=== PATIENT | female | born 1960 | race Caucasian/White ===

== ENCOUNTER → 2019-09-12 | Outpatient (CLI) | payer OTHER ==
[~2019-09-12] MED LIST: CARI350 PO; CIPR500 PO; DESV50 PO; ESTR2 PO; FLUO20 PO; GEMF600 PO; HYDACE5 PO; Hair, Skin & N1 EACH PO; MULVITMINF PO; OLAN10 PO; OLAN10A MM; OLAN5 PO; OMEP40CA12 PO; OXYACE5T PO; OXYACE7.5T PO; OXYC10TA19 PO; PROM25 PO; TRAM50 PO
[2019-09-13 09:36] LABS: Candida species (DNA Probe) Negative (NEGATIVE); G. vaginalis (DNA Probe) Positive (NEGATIVE); T. vaginalis (DNA Probe) Negative (NEGATIVE)
== END | disposition home or self-care (01) ==
LOC: LAB SHORT 12:00 → LAB 12:00
PROVIDERS: Internal Medicine
DX: N89.8 Other specified noninflammatory disorders of vagina (principal)
CPT/HCPCS: 87480; 87510; 87660

== ENCOUNTER → 2019-09-27 | Outpatient (CLI) | payer OTHER ==
[2019-09-29 12:07] LABS: CHLAMYDIA TRACHOMATIS, NAA Negative (Negative); NEISSERIA GONORRHOEAE, NAA Negative (Negative)
== END | disposition home or self-care (01) ==
LOC: LAB SHORT 10:54 → LAB 10:54
PROVIDERS: Internal Medicine
DX: Z11.59 Encounter for screening for other viral diseases (principal)
CPT/HCPCS: 87491; 87591

== ENCOUNTER 2019-11-04 05:51 | Day surgery (SDC) | payer OTHER ==
[~2019-11-04] VITALS: Ht 325.1 cm; Wt 72.4 kg
[~2019-11-04 05:51] MED LIST changes: +ALBU2.5V5 NEB; +ALBU90OI INH; +CENTRUM SILVER1 EAC2 PO; +ESTRADIOL0.5 MG PO; +MELO7.5 PO; +OLANZAPINE15 MG PO; +SUMA25 PO; +Voltaren100 GM TOP
--- NOTE | 2019-11-04 06:57 | NUR ---
Ambulatory in Day Surgery History, Chart, Medications and Allergies reviewed before start of procedure.Patient confirms NPO status and agrees with scheduled surgery. Patient reports completing Chlorhexadine shower X2 prior to admission to hospital.Surgical site prepped with 2% Chlorhexidine cloth wipe. Lungs clear T/O to Auscultation.PT REPORTS COMPLETING 5 DAYS OF SHOWER AND MUPIROCIN OINTMENT. TOP PARTIAL DENTURE WILL BE REMOVED AND TAKEN TO PACU
--- NOTE | 2019-11-04 18:56 | NUR ---
SHIFT SUMMARY PT A&OX4, VSS, S/P R SANTA, AQUACEL CDI, POLAR ROSHNI/TEDS/SCDS ON. PAIN MANAGED WITH 5 MG OXY/TYLENOL/TORADOL. KARSTEN PO REG DIET; DENIES N&V. AMB SBA W/FWW & GB TO BRP/BED/CHAIR. VOIDING WELL. REPORT GIVEN TO NATIVIDAD HIGUERA.
--- NOTE | 2019-11-05 00:39 | NUR ---
ASKED PATEINT MULTIPLE TIMES IF SHE WANTED TO TAKE GAIT BELT OFF WHILE IN BED. PATIENT REFUSED. RN NOTIFIED. NO OTHER NEEDS AT THIS TIME. CALL LIGHT IN REACH.
[2019-11-05 04:47] LABS: BASOPHILS ABSOLUTE AUTO 0.02 K/mm3 (0.00-0.23); BASOPHILS PERCENT AUTO 0 % (0-2); EOSINOPHILS ABSOLUTE AUTO 0.04 K/mm3 (0.00-0.68); EOSINOPHILS PERCENT AUTO 1 % (0-6); Hematocrit 31.6 % (33.0-51.0); Hemoglobin 10.2 g/dL (11.5-16.0); IMMATURE GRAN ABSOLUTE AUTO 0.03 K/mm3 (0.00-0.10); IMMATURE GRAN PERCENT AUTO 0 % (0-1); LYMPHOCYTES ABSOLUTE AUTO 1.74 K/mm3 (0.84-5.20); LYMPHOCYTES PERCENT AUTO 26 % (21-46); MONOCYTES ABSOLUTE AUTO 0.57 K/mm3 (0.16-1.47); MONOCYTES PERCENT AUTO 8 % (4-13); Mean Corpuscular HGB 29.8 pg (26.0-34.0); Mean Corpuscular HGB Conc 32.3 g/dL (31.5-36.5); Mean Corpuscular Volume 92 fL (80-100); Mean Platelet Volume 11.1 fL (9.1-12.4); NEUTROPHILS ABSOLUTE AUTO 4.39 K/mm3 (1.96-9.15); NEUTROPHILS PERCENT AUTO 65 % (41-73); Platelet Count 136 K/mm3 (150-400); RDW Coefficient Variation 11.8 % (11.7-14.2); RDW Standard Deviation 39.9 fL (35.1-46.3); Red Blood Cell Count 3.42 M/mm3 (3.80-5.20); White Blood Cell Count 6.79 K/mm3 (4.00-11.30)
--- NOTE | 2019-11-05 05:05 | NUR ---
SHIFT SUMMARY: PT POD#1 FOR RIGHT TOTAL HIP. AQUACEL DRESSING CDI WITH POLAR PACK IN PLACE. PAIN MANAGED WITH TORADOL, TYLENOL AND 5MG OXY PER EMAR. PT AMBULATING TO BATHROOM WITH ONE MINIMAL ASSIST AND FWW. VOIDING WELL. KARSTEN PO. DENIES N/V. VS WNL.
[2019-11-05 05:09] LABS: Anion Gap 4 mmol/L (6-16); Blood Urea Nitrogen 8 mg/dL (8-24); Bun/Creatinine Ratio 11.4 (12.0-20.0); CO2, Blood 29 mmol/L (21-32); Chloride, Blood 111 mmol/L (98-108); Glomerular Filtration Rate >60 (60-); Glucose, Blood 97 mg/dL (70-99); Magnesium, Blood 2.3 mg/dL (1.6-2.4); Potassium, Blood 3.8 mmol/L (3.5-5.5); Sodium, Blood 144 mmol/L (136-145)
[2019-11-05] MEDS ORDERED: OXYC5 PO (12:16)
[2019-11-05] MEDS ORDERED: ACET500 PO (12:16)
[2019-11-05] MEDS ORDERED: ASPI81CH PO (12:17)
--- NOTE | 2019-11-05 14:36 | NUR ---
DISCHARGE: PT EATING AND DRINKING, VOIDING, PASSING GAS. PT REPORTS HAVING WALKER AT HOME. PT REPORTS CALLING FRIEND TO HELP WITH PAIN SCRIPT. PT CLEARED THERAPY TO GO HOME. PT REPORTS UNDERSTANDING OF DISCHARGE INSTRUCTIONS INCLUDING DRESSING CHANGE, POLAR PAC. PT SENT WITH SCRIPT AND OTHER BELONGINGS WELL POLAR PAC AND DRESSING SUPPLIES.
== END 2019-11-05 14:41 | disposition home or self-care (01) ==
LOC: ORSCMMR 05:51 → ORD 07:30 → SURS 12:00 → ORSCMMR 11-05 14:41 → SURS 11-05 14:41
PROVIDERS: Orthopaedic Surgery
PROC: 0SR90JA Replacement of Right Hip Joint with Synthetic Substitute, Uncemented, Open Approach (ICD-10-PCS; principal; 2019-11-04 07:30)
DX: M16.11 Unilateral primary osteoarthritis, right hip (principal); G47.33 Obstructive sleep apnea (adult) (pediatric); J44.9 Chronic obstructive pulmonary disease, unspecified; Z87.891 Personal history of nicotine dependence; F20.9 Schizophrenia, unspecified; Z79.899 Other long term (current) drug therapy
CPT/HCPCS: 36415; 72170; 80048; 83735; 85025; 88300; 97110; 97116; 97162; 97530; A9270-GY; C1713; C1776; J0171; J0690; J0735; J1100; J1885; J2250; J2405; J2704; J2795; J3010; J7120

== ENCOUNTER → 2020-04-13 | Outpatient (CLI) | payer OTHER ==
[~2020-04-13] MED LIST changes: +ACET500 PO; +ASPI81CH PO; +BENZOTROPINE PO; +OXYC5 PO; +ROXICODONE5 MG PO; +[UNRECOGNIZED DRUG - OTHER] PO
== END | disposition home or self-care (01) ==
LOC: LAB 16:00
DX: Z01.419 Encounter for gynecological examination (general) (routine) without abnormal findings (principal)
CPT/HCPCS: 87070; 87205

== ENCOUNTER 2020-10-12 07:51 | Day surgery (SDC) | payer OTHER ==
[~2020-10-12] VITALS: Ht 172.7 cm; Wt 75.2 kg
[~2020-10-12 07:51] MED LIST changes: -ROXICODONE5 MG PO
[2020-10-12] MEDS ORDERED: TRAM50 PO (08:23)
--- NOTE | 2020-10-12 08:47 | NUR ---
Ambulatory in Day Surgery Patient confirms NPO status and agrees with scheduled surgery. Patient reports completing Chlorhexadine shower X2 prior to admission to hospital. Lungs clear T/O to Auscultation. History, Chart, Medications and Allergies reviewed before start of procedure. PT REPORTS MUPIROCIN OINT TO BIALTERAL NARES AND SHOWERS PER ORDERS COMPLETED. + VOID.
--- NOTE | 2020-10-12 16:01 | NUR ---
POST OP: REPORT RECEIVED FROM ATLASSIAN ADMINISTRATORLARISSA. PT TO UNIT AT ABOUT 1200. UPON ASSESSMENT PT IS DROWSY, ORIENTED. VSS. PT DENIES PAIN, REPORTS NUMBNESS FROM ABOUT THE HIP DOWN, UNABLE TO WIGGLE TOES. SURGICAL SITE WNL, POLAR PAC IN PLACE. WILL CTM.
--- NOTE | 2020-10-12 18:35 | NUR ---
SUMMARY: PT IS POD0 L TKA. VSS, A/O. PT DOING WELL, HAS DENIED PAIN. ABLE TO AMBULATE IN CAN WITH THERAPY AND TO THE BATHROOM. SURGICAL SITE WNL. KNEE ELEVATED IN RECLINER AND ICED WHEN PT RESTING. PT KARSTEN PO AND IS VOIDING. NO SAFETY CONCERNS.
--- NOTE | 2020-10-13 02:33 | NUR ---
SHIFT SUMMARY: POD 1 LEFT TKA PATIENT IS ALERT AND ORIENTED X4 WHILE AWAKE. THOUGH SHE HAS BEEN ASLEEP MAJORITY OF THE SHIFT BUT IS EASILY AWAKENED. PATIENT DOES SEEM TO HAVE A FLAT AFFECT WHEN SPEAKING TO HER. VS ARE WNL AND IS ON RA. PAIN IS MANAGED WITH TYLENOL AND TORADOL. THE TWO AQUACELS ARE C/D/I ON HER KNEE. PATIENT DENIES NUMBNESS AND TINGLING. SHE IS TOLERATING PO INTAKE AND IS VOIDING. CALLS APPROPRIATELY. SHE IS A SBA WITH FWW AND GAIT BELT. CALL LIGHT WITHIN REACH. THE PLAN IS TO BE DISCHARGED TO HOME LATER TODAY.
[2020-10-13 04:31] LABS: BASOPHILS ABSOLUTE AUTO 0.02 K/mm3 (0.00-0.23); BASOPHILS PERCENT AUTO 0 % (0-2); EOSINOPHILS ABSOLUTE AUTO 0.07 K/mm3 (0.00-0.68); EOSINOPHILS PERCENT AUTO 1 % (0-6); Hematocrit 34.2 % (33.0-51.0); Hemoglobin 11.3 g/dL (11.5-16.0); IMMATURE GRAN ABSOLUTE AUTO 0.01 K/mm3 (0.00-0.10); IMMATURE GRAN PERCENT AUTO 0 % (0-1); LYMPHOCYTES ABSOLUTE AUTO 1.86 K/mm3 (0.84-5.20); LYMPHOCYTES PERCENT AUTO 34 % (21-46); MONOCYTES ABSOLUTE AUTO 0.45 K/mm3 (0.16-1.47); MONOCYTES PERCENT AUTO 8 % (4-13); Mean Corpuscular HGB 29.4 pg (26.0-34.0); Mean Corpuscular Volume 89 fL (80-100); Mean Platelet Volume 11.5 fL (9.1-12.4); NEUTROPHILS ABSOLUTE AUTO 3.11 K/mm3 (1.96-9.15); NEUTROPHILS PERCENT AUTO 56 % (41-73); Platelet Count 133 K/mm3 (150-400); RDW Coefficient Variation 13.8 % (11.7-14.2); RDW Standard Deviation 45.1 fL (35.1-46.3); Red Blood Cell Count 3.84 M/mm3 (3.80-5.20); White Blood Cell Count 5.52 K/mm3 (4.00-11.30)
[2020-10-13 04:57] LABS: Anion Gap 4 mmol/L (6-16); Blood Urea Nitrogen 14 mg/dL (8-24); CO2, Blood 26 mmol/L (21-32); Calcium, Blood 7.8 mg/dL (8.5-10.1); Chloride, Blood 112 mmol/L (98-108); Creatinine, Blood 0.82 mg/dL (0.40-1.00); Glomerular Filtration Rate >60 (60-); Glucose, Blood 88 mg/dL (70-99); Magnesium, Blood 2.4 mg/dL (1.6-2.4); Potassium, Blood 3.8 mmol/L (3.5-5.5); Sodium, Blood 142 mmol/L (136-145)
[2020-10-13] MEDS ORDERED: OXYC5 PO (08:47)
[2020-10-13] MEDS ORDERED: ROXICODONE5 MG PO (09:50)
[2020-10-13] MEDS ORDERED: ACET500 PO (09:51)
[2020-10-13] MEDS ORDERED: ASPI81CH PO (09:52)
--- NOTE | 2020-10-13 12:32 | NUR ---
DISCHARGE: PT CLEARED WITH THERAPY. DISCHARGE PACKET PRINTED AND PT EDUCATED. PT GIVEN EXTRA AQUCEL DRESSINGS AND SCRIPT. NO MEDS FAXED TO PHARMACY. IV DC'D WNL. PT LEFT UNIT VIA WHEELCHAIR WITH THIS RN AT ABOUT 1055
== END 2020-10-13 11:05 | disposition home or self-care (01) ==
LOC: ORSCMMR 07:51 → ORD 10:45 → ORSCMMR 11:48 → SURS 11:48 → ORSCMMR 10-13 11:05 → SURS 10-13 11:05 → ORD 10-19 14:00
PROVIDERS: Orthopaedic Surgery
PROC: 0SRD0JA Replacement of Left Knee Joint with Synthetic Substitute, Uncemented, Open Approach (ICD-10-PCS; principal; 2020-10-12 10:45)
PROC: 8E0Y0CZ Robotic Assisted Procedure of Lower Extremity, Open Approach (ICD-10-PCS; principal; 2020-10-12 10:45)
DX: M17.12 Unilateral primary osteoarthritis, left knee (principal); E78.5 Hyperlipidemia, unspecified; J44.9 Chronic obstructive pulmonary disease, unspecified; Z87.891 Personal history of nicotine dependence; G47.33 Obstructive sleep apnea (adult) (pediatric); K21.9 Gastro-esophageal reflux disease without esophagitis; E11.9 Type 2 diabetes mellitus without complications; F20.9 Schizophrenia, unspecified; Z79.899 Other long term (current) drug therapy; Z86.19 Personal history of other infectious and parasitic diseases
CPT/HCPCS: 27447; S2900; 36415; 73560-LT; 80048; 83735; 85025; 94760; 97110; 97116; 97161; 97530; A9270; C1776; J0171; J0690; J0735; J1100; J1885; J2250; J2370; J2405; J2704; J2795; J3010; J7120

== ENCOUNTER → 2021-01-26 | Outpatient (CLI) | payer OTHER ==
[~2021-01-26] MED LIST changes: +ROXICODONE5 MG PO
[2021-01-26 12:59] LABS: Body Fluid Crystals NEG (NEGATIVE)
[2021-01-26 13:28] LABS: BODY FLUID RBC 0.467 M/mm3 (0-0); RBC Count, Synovial Fluid 467000 /mm3 (0-0); WBC Count, Synovial Fluid 493 /mm3 (0-180)
[2021-01-26 14:12] LABS: Eos, Synovial Fluid 1 % (0-2); Lymphs, Synovial Fluid 31 % (0-15); Monocytes/Macrophages, Synovia 2 % (0-65); Neutrophils, Synovial Fluid 66 % (0-24)
[2021-01-26 14:13] LABS: Appearance, Synovial Fluid Bloody (Clear); Color, Synovial Fluid Red (None-P Yel)
== END | disposition home or self-care (01) ==
LOC: LAB 12:37 → LAB SHORT 12:37
PROVIDERS: Orthopaedic Surgery
DX: M25.462 Effusion, left knee (principal)
CPT/HCPCS: 86140; 89051; 89060

== ENCOUNTER 2021-02-05 06:03 | Day surgery (SDC) | payer OTHER ==
[~2021-02-05] VITALS: Ht 172.7 cm; Wt 72.1 kg
[2021-02-05] MEDS ORDERED: TRAM50 PO (07:06)
[2021-02-05 07:07] LABS: SARS-Cov-2 (COVID-19) PCR, MMC NEGATIVE (NEGATIVE)
--- NOTE | 2021-02-05 07:09 | NUR ---
History, Chart, Medications and Allergies reviewed before start of procedure. Patient confirms NPO status and agrees with scheduled surgery. Patient States Post-Procedure ride home has been arranged with medical transport.
--- NOTE | 2021-02-05 07:24 | NUR ---
NOZIN NASAL SANIZTIZER X3 AMPULES USED TO CLEAN NARES BILAT PER ORDER. KNEE HIGH SHAHBAZ HOSE AND CALF PAS APPLIED TO RLE.
[2021-02-05] MEDS ORDERED: OXYC5 PO (10:49)
[2021-02-05 11:37] LABS: Creatinine, Blood 0.78 mg/dL (0.40-1.00)
[2021-02-05] MEDS ORDERED: ACET500 PO (12:25)
--- NOTE | 2021-02-05 17:40 | NUR ---
pt instructed on emptying and recording mildred drain. pt with knee immobilizer in place to left knee, dressing dry and intact, pt denies numbness or tingling of extrenities. pt reprts pain 8/10 to left knee
--- NOTE | 2021-02-06 04:48 | NUR ---
SHIFT SUMMARY POD1 FROM INSCISION, I&D WITH MOSHE DRAIN ON L KNEE. L KNEE WITH MARVA WRAPPED AND KNEE IMMOBILIZER. PT REPORTS MODERATE PAIN BUT DENIES NUMBNESS AND TINGLING SENSATION. PAIN MANAGED WITH TYLENOL AND OXYCODONE. PT TOLEARTING PO INTAKE, DIDN'T EAT HER DINNER BUT HAD SOME SNACKS THIS MORNING. PT DENIES NAUSEA AND VOMITING. PT SLEPT GOOD OVERNIGHT. VOIDING. SALINE LOCKED. IV ABX ADMINSTERED. AOX4. USED BSC WITH 1 PERSON ASSIST. PLAN FOR DISCHARGE TODAY AT HOME. CALL LIGHT WITHIN REACH. WILL PROVIDE REPORT TO ONCOMING NURSE.
--- NOTE | 2021-02-06 11:10 | NUR ---
CALL PLACED TO DR. HENSON REGARDING INCREASED PAIN. TORADOL PRESCRIBED. ALSO DISCUSSED WITH HIM ABX, DR. HENSON REPORTED OK TO DC PT HOME WITHOUT ABX AND TO LEAVE MOSHE DRAIN IN PLACE PER DR. BLANDON ORDERS. PT WILL REQUIRE PHYSICAL THERAPY PRIOR TO DISCHARGE.
--- NOTE | 2021-02-06 17:27 | NUR ---
SHIFT SUMMARY PT IS POD#1 FROM I&D OF LEFT KNEE. PAIN MANAGED WITH TYLENOL, TORADOL, AND OXY. PT CLEARED THERAPY TODAY. PLAN FOR DISCHARGE HOME WHEN [facility] TRANSPORT IS AVALIABLE, TRANSPORT AVALIABLE AT 2030. VSS. WILL MONITOR UNTIL REPORT TO NOC RN.
--- NOTE | 2021-02-06 18:43 | NUR ---
MOSHE DRAIN BECAME DISCONNECTED MOSHE DRAIN BULB BECAME DISCONNECTED AND FELL ONTO THE FLOOR. OLD DRAIN WAS DISCARDED. TUBING WAS COVERED WITH AN ALCOHOL WIPE AND CLAMPED UNTIL NEW DRAIN COULD BE OBTAINED AND CONNECTED. BULB DRAIN HOLDING SUCTION AFTER BEING RECONNECTED. DR. HENSON WAS NOTIFIED OF DISCONNECTION AND HE ORDERED BACTRIM DS FOR HOME USE, MEDICATION WAS CALLED TO PT'S PHARMACY. PT EDUCATED TO START BACTRIM TOMORROW MORNING PER DR. HENSON AND WILL HAVE HER LAST DOSE OF VANCO BEFORE DISCHARGE TONIGHTDR. HENSON AWARE.
[2021-02-06 19:39] LABS: Vancomycin, Trough 11.4 ug/mL (5.0-10.0)
--- NOTE | 2021-02-06 21:30 | NUR ---
SUMMARY PT WITH DSNGS D/I.[facility] CHECKS INTACT. ABLE TO DRESS SELF FOR DISCHARGE. VANCO TROUGH COMPLETED AND VANCO INFUSED.PT VERB UNDERSTANDING TO START PO ANTIBIOTICS IN AM.IV WAS DCD WITH CATH INTACT.PT WAS DRIVEN HOME PER TRANSPORT ORDERED PER DAY RN.
== END 2021-02-06 21:22 | disposition home or self-care (01) ==
LOC: ORSCMMR 06:03 → ORD 09:30 → ORSCMMR 09:30 → SURS 10:29 → ORSCMMR 02-06 21:22
PROVIDERS: Orthopaedic Surgery
PROC: 0SRD0LZ Replacement of Left Knee Joint with Medial Unicondylar Synthetic Substitute, Open Approach (ICD-10-PCS; principal; 2021-02-05 07:30)
PROC: 0SBD0ZZ Excision of Left Knee Joint, Open Approach (ICD-10-PCS; principal; 2021-02-05 07:30)
PROC: 0SPD0LZ Removal of Medial Unicondylar Synthetic Substitute from Left Knee Joint, Open Approach (ICD-10-PCS; principal; 2021-02-05 07:30)
DX: M25.462 Effusion, left knee (principal); T84.54XA Infection and inflammatory reaction due to internal left knee prosthesis, initial encounter; E78.5 Hyperlipidemia, unspecified; J44.9 Chronic obstructive pulmonary disease, unspecified; Z87.891 Personal history of nicotine dependence; G47.33 Obstructive sleep apnea (adult) (pediatric); B19.20 Unspecified viral hepatitis C without hepatic coma; F20.9 Schizophrenia, unspecified; F32.A Depression, unspecified; Z79.899 Other long term (current) drug therapy
CPT/HCPCS: 36415; 80202; 82565; 85651; 86140; 97161; A9270; C1713; C1776; J0690; J1100; J1170; J1885; J2250; J2405; J2704; J3010; J3370; J7050; J7120; U0004

== ENCOUNTER → 2021-04-06 | Outpatient (CLI) | payer OTHER ==
[2021-04-06 16:43] LABS: BASOPHILS ABSOLUTE AUTO 0.04 K/mm3 (0.00-0.23); BASOPHILS PERCENT AUTO 1 % (0-2); EOSINOPHILS ABSOLUTE AUTO 0.08 K/mm3 (0.00-0.68); EOSINOPHILS PERCENT AUTO 1 % (0-6); Hematocrit 35.3 % (33.0-51.0); Hemoglobin 11.3 g/dL (11.5-16.0); IMMATURE GRAN ABSOLUTE AUTO 0.01 K/mm3 (0.00-0.10); IMMATURE GRAN PERCENT AUTO 0 % (0-1); LYMPHOCYTES ABSOLUTE AUTO 1.93 K/mm3 (0.84-5.20); LYMPHOCYTES PERCENT AUTO 33 % (21-46); MONOCYTES ABSOLUTE AUTO 0.44 K/mm3 (0.16-1.47); MONOCYTES PERCENT AUTO 7 % (4-13); Mean Corpuscular HGB 27.8 pg (26.0-34.0); Mean Corpuscular Volume 87 fL (80-100); Mean Platelet Volume 11.4 fL (9.1-12.4); NEUTROPHILS ABSOLUTE AUTO 3.41 K/mm3 (1.96-9.15); NEUTROPHILS PERCENT AUTO 58 % (41-73); Platelet Count 253 K/mm3 (150-400); RDW Coefficient Variation 12.6 % (11.7-14.2); RDW Standard Deviation 40.2 fL (35.1-46.3); Red Blood Cell Count 4.07 M/mm3 (3.80-5.20); White Blood Cell Count 5.91 K/mm3 (4.00-11.30)
[2021-04-06 16:47] LABS: Alanine Aminotransfer (ALT/SGP 19 U/L (12-78); Albumin, Blood 3.1 g/dL (3.4-5.0); Albumin/Globulin Ratio 0.8 (0.8-1.8); Alk Phos 84 U/L (50-136); Anion Gap 3 mmol/L (6-16); Aspartate Aminotrans (AST/SGOT 12 U/L (12-37); Bilirubin, Total 0.3 mg/dL (0.1-1.0); Blood Urea Nitrogen 12 mg/dL (8-24); Bun/Creatinine Ratio 15.3 (12.0-20.0); CHOL/HDL RATIO 3.6; CO2, Blood 28 mmol/L (21-32); Chloride, Blood 106 mmol/L (98-108); Cholesterol 151 mg/dL (50-200); Creatinine, Blood 0.79 mg/dL (0.40-1.00); Globulin, Blood 3.9 g/dL (2.2-4.0); Glomerular Filtration Rate >60 (60-); Glucose, Blood 94 mg/dL (70-99); HDL Cholesterol 42 mg/dL (>39); LDL/HDL RATIO 2.3; Low Density Lipoprotein Chol 97 mg/dL (0-110); Potassium, Blood 4.5 mmol/L (3.5-5.5); Sodium, Blood 137 mmol/L (136-145); Triglycerides 59 mg/dL (30-160); Very Low Density Lipoprot Chol 11 mg/dL (6-32)
== END ==
LOC: LAB SHORT 15:23 → LAB 15:23
PROVIDERS: Internal Medicine
DX: D69.6 Thrombocytopenia, unspecified (principal); E78.5 Hyperlipidemia, unspecified
CPT/HCPCS: 80053; 80061; 85025

== ENCOUNTER → 2021-06-15 | Outpatient (CLI) | payer OTHER ==
[2021-06-15 15:32] LABS: BODY FLUID RBC 0.004 M/mm3 (0-0); RBC Count, Synovial Fluid 4000 /mm3 (0-0)
[2021-06-15 16:52] LABS: WBC Count, Synovial Fluid 28085 /mm3 (0-180)
[2021-06-15 16:58] LABS: Body Fluid Crystals NEG (NEGATIVE)
[2021-06-15 17:10] LABS: Lymphs, Synovial Fluid 2 % (0-15); Monocytes/Macrophages, Synovia 6 % (0-65); Neutrophils, Synovial Fluid 92 % (0-24)
[2021-06-15 17:11] LABS: Appearance, Synovial Fluid Turbid (Clear); Color, Synovial Fluid Yellow (None-P Yel)
== END ==
LOC: LAB SHORT 14:25
PROVIDERS: Orthopaedic Surgery
DX: M25.462 Effusion, left knee (principal); Z96.652 Presence of left artificial knee joint
CPT/HCPCS: 89051; 89060

== ENCOUNTER → 2021-10-05 | Outpatient (CLI) | payer OTHER ==
[2021-10-05 13:50] LABS: BASOPHILS ABSOLUTE AUTO 0.05 K/mm3 (0.00-0.23); BASOPHILS PERCENT AUTO 1 % (0-2); EOSINOPHILS ABSOLUTE AUTO 0.05 K/mm3 (0.00-0.68); EOSINOPHILS PERCENT AUTO 1 % (0-6); Hematocrit 40.9 % (33.0-51.0); Hemoglobin 12.5 g/dL (11.5-16.0); IMMATURE GRAN ABSOLUTE AUTO 0.01 K/mm3 (0.00-0.10); IMMATURE GRAN PERCENT AUTO 0 % (0-1); LYMPHOCYTES ABSOLUTE AUTO 1.28 K/mm3 (0.84-5.20); LYMPHOCYTES PERCENT AUTO 28 % (21-46); MONOCYTES ABSOLUTE AUTO 0.36 K/mm3 (0.16-1.47); MONOCYTES PERCENT AUTO 8 % (4-13); Mean Corpuscular HGB 24.4 pg (26.0-34.0); Mean Corpuscular HGB Conc 30.6 g/dL (31.5-36.5); Mean Corpuscular Volume 80 fL (80-100); Mean Platelet Volume 10.7 fL (9.1-12.4); NEUTROPHILS ABSOLUTE AUTO 2.91 K/mm3 (1.96-9.15); NEUTROPHILS PERCENT AUTO 62 % (41-73); Platelet Count 318 K/mm3 (150-400); RDW Coefficient Variation 15.9 % (11.7-14.2); RDW Standard Deviation 45.9 fL (35.1-46.3); Red Blood Cell Count 5.13 M/mm3 (3.80-5.20); White Blood Cell Count 4.66 K/mm3 (4.00-11.30)
== END ==
LOC: LAB SHORT 12:37
PROVIDERS: Internal Medicine
DX: D69.6 Thrombocytopenia, unspecified (principal)
CPT/HCPCS: 85025

== ENCOUNTER 2022-05-31 07:36 | Day surgery (SDC) | payer OTHER ==
[~2022-05-31] VITALS: Ht 172.7 cm; Wt 70.1 kg
[2022-05-31] MEDS ORDERED: TRAM50 (08:34)
[2022-05-31] MEDS ORDERED: ELIQUIS2.5 MG (08:34)
== END 2022-05-31 10:03 | disposition home or self-care (01) ==
LOC: ORSCSDS 07:36
PROVIDERS: Surgery
PROC: 0DJD8ZZ Inspection of Lower Intestinal Tract, Via Natural or Artificial Opening Endoscopic (ICD-10-PCS; principal; 2022-05-31 09:15)
DX: Z12.11 Encounter for screening for malignant neoplasm of colon (principal); J44.9 Chronic obstructive pulmonary disease, unspecified; G47.30 Sleep apnea, unspecified; K21.9 Gastro-esophageal reflux disease without esophagitis; F41.9 Anxiety disorder, unspecified; F32.A Depression, unspecified; B19.20 Unspecified viral hepatitis C without hepatic coma; F20.9 Schizophrenia, unspecified; E78.5 Hyperlipidemia, unspecified; Z87.891 Personal history of nicotine dependence; Z79.01 Long term (current) use of anticoagulants; Z79.899 Other long term (current) drug therapy
CPT/HCPCS: J2704; J7120

== ENCOUNTER → 2022-11-18 | Outpatient (CLI) | payer OTHER ==
[~2022-11-18] MED LIST changes: +ELIQUIS2.5 MG; +TRAM50
[2022-11-18 17:07] LABS: BASOPHILS ABSOLUTE AUTO 0.05 K/mm3 (0.00-0.23); BASOPHILS PERCENT AUTO 1 % (0-2); EOSINOPHILS ABSOLUTE AUTO 0.04 K/mm3 (0.00-0.68); EOSINOPHILS PERCENT AUTO 1 % (0-6); Hematocrit 40.7 % (33.0-51.0); Hemoglobin 13.3 g/dL (11.5-16.0); IMMATURE GRAN ABSOLUTE AUTO 0.01 K/mm3 (0.00-0.10); IMMATURE GRAN PERCENT AUTO 0 % (0-1); LYMPHOCYTES ABSOLUTE AUTO 1.69 K/mm3 (0.84-5.20); LYMPHOCYTES PERCENT AUTO 32 % (21-46); MONOCYTES ABSOLUTE AUTO 0.35 K/mm3 (0.16-1.47); MONOCYTES PERCENT AUTO 7 % (4-13); Mean Corpuscular HGB 28.2 pg (26.0-34.0); Mean Corpuscular HGB Conc 32.7 g/dL (31.5-36.5); Mean Corpuscular Volume 86 fL (80-100); Mean Platelet Volume 11.7 fL (9.1-12.4); NEUTROPHILS ABSOLUTE AUTO 3.14 K/mm3 (1.96-9.15); NEUTROPHILS PERCENT AUTO 60 % (41-73); Platelet Count 199 K/mm3 (150-400); RDW Coefficient Variation 15.1 % (11.7-14.2); RDW Standard Deviation 48.1 fL (35.1-46.3); Red Blood Cell Count 4.71 M/mm3 (3.80-5.20); White Blood Cell Count 5.28 K/mm3 (4.00-11.30)
[2022-11-18 17:44] LABS: Albumin, Blood 3.9 g/dL (3.4-5.0); Albumin/Globulin Ratio 1.2 (0.8-1.8); Bilirubin, Total 0.4 mg/dL (0.1-1.0); Calcium, Blood 8.8 mg/dL (8.5-10.1); Creatinine, Blood 0.61 mg/dL (0.40-1.00); Globulin, Blood 3.3 g/dL (2.2-4.0); Potassium, Blood 4.1 mmol/L (3.5-5.5); Total Protein, Blood 7.2 g/dL (6.4-8.2)
== END | disposition home or self-care (01) ==
LOC: LAB SHORT 15:50 → LAB 15:50
PROVIDERS: Family Medicine
DX: Z51.81 Encounter for therapeutic drug level monitoring (principal); Z79.899 Other long term (current) drug therapy
CPT/HCPCS: 80053; 85025

== ENCOUNTER → 2024-12-04 | Outpatient (CLI) | payer MEDICARE, OTHER ==
[2024-12-04 16:46] LABS: BASOPHILS ABSOLUTE AUTO 0.05 K/mm3 (0.00-0.23); BASOPHILS PERCENT AUTO 1 % (0-2); EOSINOPHILS ABSOLUTE AUTO 0.03 K/mm3 (0.00-0.68); EOSINOPHILS PERCENT AUTO 1 % (0-6); Hematocrit 40.0 % (33.0-51.0); Hemoglobin 13.0 g/dL (11.5-16.0); IMMATURE GRAN ABSOLUTE AUTO 0.01 K/mm3 (0.00-0.10); IMMATURE GRAN PERCENT AUTO 0 % (0-1); LYMPHOCYTES ABSOLUTE AUTO 1.72 K/mm3 (0.84-5.20); LYMPHOCYTES PERCENT AUTO 35 % (21-46); MONOCYTES ABSOLUTE AUTO 0.41 K/mm3 (0.16-1.47); MONOCYTES PERCENT AUTO 8 % (4-13); Mean Corpuscular HGB Conc 32.5 g/dL (31.5-36.5); Mean Corpuscular Volume 92 fL (80-100); NEUTROPHILS ABSOLUTE AUTO 2.66 K/mm3 (1.96-9.15); NEUTROPHILS PERCENT AUTO 55 % (41-73); NRBC ABSOLUTE 0.00 K/mm3 (0.00-0.02); NRBC Auto 0.0 /100 WBC (0.0-0.2); Platelet Count 195 K/mm3 (150-400); RDW Coefficient Variation 13.1 % (11.7-14.2); RDW Standard Deviation 44.2 fL (35.1-46.3)
== END | disposition home or self-care (01) ==
LOC: LAB 15:49 → LAB SHORT 15:49
PROVIDERS: Student in an Organized Health Care Education/Training Program
DX: M25.562 Pain in left knee (principal)
CPT/HCPCS: 85025; 85651; 86140